=== PATIENT | female | born 1965 | race Two or more races ===

== ENCOUNTER → 2019-01-13 14:40 | Outpatient (CLI) | payer OTHER | END | disposition home or self-care (01) | LOC: LAB 14:40 | DX: E03.8 Other specified hypothyroidism (principal); R76.0 Raised antibody titer; M05.70 Rheumatoid arthritis with rheumatoid factor of unspecified site without organ or systems involvement; M06.89 Other specified rheumatoid arthritis, multiple sites ==

== ENCOUNTER 2019-01-13 15:32 | Outpatient (CLI) | payer OTHER | END 2019-01-13 15:42 | disposition home or self-care (01) | LOC: RAD 15:32 | DX: M54.2 Cervicalgia (principal); M54.40 Lumbago with sciatica, unspecified side ==